=== PATIENT | male | born 1950 | race Caucasian/White ===

== ENCOUNTER → 2024-05-31 12:58 | Outpatient (CLI) | payer MEDICARE, OTHER, SELFPAY ==
[2024-05-31 17:09] LABS: Blood Urea Nitrogen 13 mg/dL (9-20); Calcium 9.5 mg/dL (8.4-10.2); Carbon Dioxide 23 mmol/L (22-32); Chloride 100 mmol/L (98-107); Estimated Glomerular Filt Rate > 60 mL/min (>60); Glucose 97 mg/dL (80-110); HEMOLYSIS 50 (0-50); Potassium 5.2 mmol/L (3.4-5.1); Sodium 132 mmol/L (137-145)
== END ==
LOC: LAB 13:09
DX: E78.1 Pure hyperglyceridemia (principal)
CPT/HCPCS: 36415; 80048